=== PATIENT | male | born 1940 | race Caucasian/White ===

== ENCOUNTER 2016-04-03 20:16 | Emergency (ER) | payer MEDICARE, OTHER ==
[~2016-04-03] VITALS: Ht 167.6 cm; Wt 73.0 kg
[2016-04-03 20:20] VITALS: Ht 167.6 cm; Wt 73.0 kg
[2016-04-03] MEDS ORDERED: OXYMETAZOLINE 0.05% 15 ML NAS SPRAY NASAL ONE ×2 (20:30→22:00)
[2016-04-03] MEDS ORDERED: LIDOCAINE 2% JELLY 30 ML TOP ONE (20:30)
[2016-04-03] MEDS ORDERED: ONDANSETRON 4 MG INJ IV STA (20:35)
--- NOTE | 2016-04-03 20:35 | ERA ---
ER Documentation Chief Complaint Date/Time DATE: 04/03/16 TIME: 20:35 Chief Complaint Epistaxis HPI 75-year-old man with a history of multiple medical problems including CAD status post CABG and valve replacement (unknown valve) on Coumadin, hypertension presents with left nare epistaxis 30 minutes. Patient was in usual state of good health until 30 minutes prior to ER arrival when he developed spontaneous epistaxis. Patient was unable to control bleeding with direct pressure or head elevation. He denies any digital trauma or any facial trauma. Reports some nasal dryness but no URI symptoms. ROS All systems reviewed and are negative except as per history of present illness. Medications Home Meds Reported Medications [Blood Pressure] No Conflict Check, PO DAILY 04/03/16 Atorvastatin Calcium (Atorvastatin Calcium) 10 Mg Tablet, 10 MG PO QHS, #30 TAB 04/03/16 Warfarin Sodium* (Coumadin*) 2 Mg Tablet, 2 MG PO DAILY, TAB 04/03/16 Allergies Allergies: Coded Allergies: No Known Drug Allergies (Verified Allergy, Unknown, 04/03/16) PMhx/Soc CAD status post CABG and valve replacement (unknown valve) on Coumadin, hypertension History of Surgery: No Anesthesia Reaction: No Hx Neurological Disorder: No Hx Respiratory Disorders: No Hx Cardiac Disorders: No Hx Psychiatric Problems: No Hx Miscellaneous Medical Probl: No Hx Alcohol Use: No Hx Substance Use: No Smoking Status: Unknown if ever smoked FmHx Family History: No coronary disease, No diabetes, No other Physical Exam Vitals Vital Signs Date Time Temp Pulse Resp B/P Pulse Ox O2 Delivery O2 Flow Rate FiO2 04/03/16 22:00 97.7 81 22 178/58 96 Room Air 04/03/16 20:20 98.7 77 20 179/68 97 Physical Exam General: alert, well appearing, moderate distress due to epistaxis, AOx4. Head: Atraumatic, normocephalic Eyes: pupils equal and reactive, extraocular eye movements intact, sclera anicteric. Ears: bilateral TM's and external ear canals normal. Nose: + L nare slow oozing of blood, no bleeding vessel visualized in anterior nasopharynx, R nare unremarkable Oropharynx: moist mucous membranes, pharynx normal without lesions. Neck: supple, no significant adenopathy. Heart: normal rate, regular rhythm, normal S1, S2, no murmurs, rubs, clicks or gallops. Peripheral pulses: normal Lungs: clear to auscultation, no wheezes, rales or rhonchi, symmetric air entry and normal work of breathing. Abdomen: soft, nontender, nondistended, no masses or organomegaly Extremities: no joint tenderness, deformity or swelling. Skin: normal coloration and turgor, no rashes, no suspicious skin lesions noted. Neurologic: Alert, moving all extremities symmetrically x 4, sensation grossly intact, no gross deficits Result Diagram: 04/03/16203404/03/162034 Results 24 hrs Laboratory Tests Test 04/03/16 20:35 04/03/16 21:30 Activated Partial Thromboplast Time 37.8Sec Anion Gap 15 Basophils # 0.010^3/ul Basophils % 0.3% Blood Urea Nitrogen 20mg/dl Calcium Level 9.4mg/dl Carbon Dioxide Level 24mmol/L Chloride Level 108mmol/L Creatinine 1.02mg/dl Eosinophils # 0.110^3/ul Eosinophils % 0.9% Glucose Level 85mg/dl Hematocrit 42.1% Hemoglobin 14.5g/dl Lymphocytes # 1.410^3/ul Lymphocytes % 20.4% Mean Corpuscular Hemoglobin 31.6pg Mean Corpuscular Hemoglobin Concent 34.4g/dl Mean Corpuscular Volume 91.8fl Mean Platelet Volume 9.5fl Mix PT Patient Plasma Immediate Sec Mix PTT Normal Plasma Immediate Sec Monocytes # 0.710^3/ul Monocytes % 9.4% Neutrophils # 4.910^3/ul Neutrophils % 69.0% Nucleated Red Blood Cells # 0.010^3/ul Nucleated Red Blood Cells % 0.0/100WBC PT Mixing Studies Interpretation Platelet Count 10337^3/UL Potassium Level 4.0mmol/L Prothrombin Time 27.4Sec 28.3Sec Red Blood Count 4.5810^6/ul Red Cell Distribution Width 13.7% Sodium Level 143mmol/L White Blood Count 7.110^3/ul INR International Normalized Ratio 2.61 Prothrombin Time Ratio 2.2 Current Medications Medications (Trade) Dose Ordered Sig/Temo Route PRN Reason Start Time Stop Time Status Last Admin Dose Admin Oxymetazoline HCl (Afrin [place]) 2 spray ONCE ONCE NASAL 04/03/16 20:30 04/03/16 20:33 DC 04/03/16 21:21 Lidocaine (Xylocaine) 1 applic ONCE ONCE TOP 04/03/16 20:30 04/03/16 20:39 DC Ondansetron HCl (Zofran Inj) 4 mg ONCE STAT IV 04/03/16 20:35 04/03/16 20:36 DC 04/03/16 20:38 Silver Nitrate (Silver Nitrate Swabs) 4 stick ONCE ONCE TOP 04/03/16 21:00 04/03/16 21:00 DC Ondansetron HCl (Zofran Inj) 4 mg STK-MED ONCE .ROUTE 04/03/16 20:37 04/03/16 20:38 DC Lidocaine (Xylocaine 2% Jelly) 1 applic ONCE ONCE TOP 04/03/16 21:00 04/03/16 21:01 DC Silver Nitrate (Silver Nitrate Swabs) 4 stick ONCE ONCE TOP 04/03/16 21:00 04/03/16 21:01 DC Miscellaneous Information 500mg of TXA to apply to topi... ONCE ONCE XX 04/03/16 21:00 04/03/16 21:01 DC Tranexamic Acid/ Sodium Chloride (Tranexamic Acid/ NS) ONCE IRR 04/03/16 21:00 04/04/16 20:59 Oxymetazoline HCl (Afrin [place]) 2 spray ONCE ONCE NASAL 04/03/16 22:00 04/03/16 22:01 DC Labetalol HCl (Labetalol) 10 mg ONCE ONCE IV 04/03/16 22:30 04/03/16 22:32 DC 04/03/16 22:35 Procedures/MDM LAB INTERPRETATION: CBC unremarkable, chemistry unremarkable, INR 2.6. MEDICAL DECISION MAKIN-year-old man with a history of multiple medical problems including CAD status post CABG and valve replacement (unknown valve) on Coumadin, hypertension presents with left nare epistaxis 30 minutes likely due to posterior nasopharynx bleed. Patient without visualized anterior nasopharynx leading vessel. Attempted direct pressure and had elevation unsuccessfully. Attempted electrocautery of the anterior nasal pharynx without success and stopping the epistaxis. Patient was infused with Afrin multiple times over the left nare and attempted 7.5 cm anterior nasal packing that was coated in 500mg of TXA, without hemostasis. Therefore ENT was called given the suspicion for posterior nasopharynx bleed. ENT specialist was able to visualize the bleed and provide the patient with focal nasal packing of posterior nasopharynx. Patient's blood pressure moderately elevated in the ER was acutely lowered using labetalol and hydralazine IV to help provide hemostasis. No indication for acute reversal of his coagulation at this time. Once blood pressure was controlled and her neck specialists was able to achieve hemostasis patient was discharged home on prophylactic antibiotics and will follow up with Dr. Angel Childress as an outpatient. Departure Condition: Good ELIZABETH BUCHANAN MD Apr 03, 2016 20:35
[2016-04-03] MEDS ORDERED: ONDANSETRON 4 MG INJ ONE (20:37)
[2016-04-03] MEDS ORDERED: LIDOCAINE 2% JELLY 5 ML TOP ONE (21:00)
[2016-04-03] MEDS ORDERED: SILVER NITRATE SWAB TOP ONE ×2 (21:00)
[2016-04-03] MEDS ORDERED: SODIUM CHLORIDE 0.9% IRR SCH ×2 (21:00)
[2016-04-03] MEDS ORDERED: TRANEXAMIC ACID 500 MG IRR SCH ×2 (21:00)
[2016-04-03 21:02] LABS: PARTIAL THROMBOPLASTIN TIME 37.8 Sec (25.0-35.0); PROTIME 27.4 Sec (12.2-14.2)
[2016-04-03 21:09] LABS: BASOPHILS % 0.3 % (0.0-2.0); CONDITION 1; EOSINOPHILS # 0.1 10^3/ul (0.0-0.5); EOSINOPHILS % 0.9 % (0.0-7.0); HEMATOCRIT 42.1 % (42.0-52.0); HEMOGLOBIN 14.5 g/dl (14.0-18.0); LYMPHOCYTES # 1.4 10^3/ul (0.8-2.9); LYMPHOCYTES % 20.4 % (15.0-51.0); MEAN CORPUSCULAR HEMOGLOBIN 31.6 pg (29.0-33.0); MEAN CORPUSCULAR HGB CONC 34.4 g/dl (32.0-37.0); MEAN CORPUSCULAR VOLUME 91.8 fl (82.0-101.0); MEAN PLATELET VOLUME 9.5 fl (7.4-10.4); MONOCYTE # 0.7 10^3/ul (0.3-0.9); MONOCYTES % 9.4 % (0.0-11.0); NEUTROPHIL # 4.9 10^3/ul (1.6-7.5); PLATELET COUNT 150 10^3/UL (140-440); RED BLOOD COUNT 4.58 10^6/ul (4.70-6.10); RED CELL DISTRIBUTION WIDTH 13.7 % (11.5-14.5); UNCORRECTED WBC 7.1 10^3/ul (4.8-10.8); WHITE BLOOD COUNT 7.1 10^3/ul (4.8-10.8)
[2016-04-03] MEDS ORDERED: WARF2TAB78 PO (21:11)
[2016-04-03] MEDS ORDERED: ATOR10TA65 PO (21:12)
[2016-04-03 21:20] LABS: CREATININE 1.02 mg/dl (0.61-1.24)
[2016-04-03 21:21] LABS: CALCIUM 9.4 mg/dl (8.4-10.2)
[2016-04-03] MEDS ORDERED: BLOOD PRESSURE PO (21:31)
[2016-04-03 21:56] LABS: INR 2.61; PROTIME 28.3 Sec (12.2-14.2); PT RATIO 2.2
[2016-04-03 22:00] VITALS: TEMP 97.7
[2016-04-03] MEDS ORDERED: LABETALOL HCL 20MG INJ IV ONE (22:30)
--- NOTE | 2016-04-03 22:56 | CONS ---
Date/Time of Note Date/Time of Note DATE: 04/03/16 TIME: 22:49 Assessment/Plan Assessment/Plan Chief Complaint/Hosp Course Posterior epistaxis on left Problems: Additional Assessment/Plan Recommend: 1. HTN control. 2. Oral abx upon discharge. 3. F/u with PCP for HTN mgmt. 4. Outpatient ENT f/u for re-examination with nasal endoscopy. Consultation Date/Type/Reason Admit Date/Time Date of Consultation: Apr 03, 2016 Type of Consultation: ENT Referring Provider: ELIZABETH BUCHANAN MD Hx of Present Illness 75 yo M with hx of CABG and valve replacement on coumadin presented to the ED today with profuse right epistaxis. ED could not control bleeding and called ENT. INR was found to be in the therapeutic range. Hx of HTN on medication. SBP was 179 upon admission. Denies facial pain. Denies nasal obstruction. Constitutional: improved, no complaints Eyes: no complaints ENT: bleeding Respiratory: no complaints Cardiovascular: no complaints Gastrointestinal: no complaints Genitourinary: no complaints Musculoskeletal: no complaints Skin: no complaints Neurologic: no complaints Past Medical History Medical History: coronary artery disease, hypertension Past Surgical History cardiac valve surgery Past Surgical Hx: coronary bypass surgery Family History Significant Family History: no pertinent family hx Social History Alcohol Use: occasionally Smoking Status: Former smoker Drug Use: none Exam/Review of Systems Vital Signs Vitals Vital Signs Date Time Temp Pulse Resp B/P Pulse Ox O2 Delivery O2 Flow Rate FiO2 04/03/16 22:00 97.7 81 22 178/58 96 Room Air Exam Constitutional: alert, oriented, well developed Psych: nl mood/affect, no complaints Head: atraumatic, normocephalic Eyes: EOMI, PERRL, nl conjunctiva, nl lids, nl sclera ENMT: other (Bleeding from left nares at rate c/w venous bleeding. 1 1/2 hours spent trying to obtain control of bleeding in ED. Bleeding appeared to be coming from near skull base medial to medial turbinate. Surgicel placed in this region.) Neck: non-tender, supple Respiratory: clear to auscultation, normal air movement Cardiovascular: nl pulses, regular rate and rhythm Gastrointestinal: nl liver, spleen, non-tender, soft Musculoskeletal: nl extremities to inspection, nl gait and stance Results Result Diagram: 04/03/16203404/03/162034 Results 24 hrs Laboratory Tests Test 04/03/16 20:35 04/03/16 21:30 Activated Partial Thromboplast Time 37.8 H Anion Gap 15 Basophils # 0.0 Basophils % 0.3 Blood Urea Nitrogen 20 Calcium Level 9.4 Carbon Dioxide Level 24 Chloride Level 108 Creatinine 1.02 Eosinophils # 0.1 Eosinophils % 0.9 Glucose Level 85 Hematocrit 42.1 Hemoglobin 14.5 Lymphocytes # 1.4 Lymphocytes % 20.4 Mean Corpuscular Hemoglobin 31.6 Mean Corpuscular Hemoglobin Concent 34.4 Mean Corpuscular Volume 91.8 Mean Platelet Volume 9.5 Mix PT Patient Plasma Immediate Mix PTT Normal Plasma Immediate Monocytes # 0.7 Monocytes % 9.4 Neutrophils # 4.9 Neutrophils % 69.0 Nucleated Red Blood Cells # 0.0 Nucleated Red Blood Cells % 0.0 PT Mixing Studies Interpretation Platelet Count 150 Potassium Level 4.0 Prothrombin Time 27.4 H 28.3 H Red Blood Count 4.58 L Red Cell Distribution Width 13.7 Sodium Level 143 White Blood Count 7.1 INR International Normalized Ratio 2.61 Prothrombin Time Ratio 2.2 Medications Medications Current Medications Tranexamic Acid/ Sodium Chloride (Tranexamic Acid/ NS) ONCE IRR ; Start at 21:00; Stop 04/04/16 at 20:59 Hydralazine HCl (Apresoline) 10 mg ONCE ONCE IV ; Start 04/03/16 at 23:00; Stop 04/03/16 at 23:01 THEA WASSERMAN MD Apr 03, 2016 22:55
[2016-04-03] MEDS ORDERED: hydrALAzine 20 MG INJ IV ONE ×2 (23:00)
[2016-04-03] MEDS ORDERED: HYDR-906 PO (23:23)
[2016-04-03] MEDS ORDERED: AMOX1TAB10 PO (23:23)
[2016-04-03] MEDS ORDERED: HYDROCODONE/APAP (5/325) TAB PO ONE (23:30)
[2016-04-03 23:45] VITALS: BP 145/78; PULSE 69; RESP 16
[2016-04-06] MEDS ORDERED: VALS1TAB74 PO (22:34)
[2016-04-06] MEDS ORDERED: METO-448 PO (22:35)
[2016-04-07] MEDS ORDERED: AMOX1TAB10 PO (00:04)
[2016-04-07] MEDS ORDERED: DIAZ-90 PO (00:04)
== END 2016-04-03 23:47 | disposition home or self-care (01) ==
LOC: E/R 20:16
DX: R04.0 Epistaxis (principal); I25.10 Atherosclerotic heart disease of native coronary artery without angina pectoris; I10 Essential (primary) hypertension; Z95.1 Presence of aortocoronary bypass graft; Z79.01 Long term (current) use of anticoagulants
CPT/HCPCS: 30903; 80048; 85025; 85335; 85610; 96374; 96375; 99284; J0360; J2405